=== PATIENT | male | born 1985 | race Caucasian/White ===

== ENCOUNTER 2018-11-11 11:08 | Emergency (ER) | payer OTHER ==
[~2018-11-11] VITALS: Ht 175.3 cm; Wt 81.2 kg
[~2018-11-11 11:08] MED LIST: CYCL-1 PO
[2018-11-11] MEDS ORDERED: diltiazem 5mg/ml 5ml inj. IV ONE ×2 (12:20)
[2018-11-11] MEDS ORDERED: normal saline 1000ml 1,000 ML IV ONE (12:26)
[2018-11-11] MEDS ORDERED: morphine 4 MG/ML inj SYRINge IV ONE (12:30)
[2018-11-11] MEDS ORDERED: iohexol 350MG/ML 100ml bottle IV ONE (12:32)
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
[2018-11-11 13:48] LABS: BASOPHILS % (AUTO) 0.3 % (0-1); EOSINOPHILS % (AUTO) 0.2 % (0-6); HEMATOCRIT 46.5 % (42.0-52.0); HEMOGLOBIN 15.8 g/dl (14.0-17.9); LYMPHOCYTES % (AUTO) 14.8 % (21-51); MEAN CORPUSCULAR HEMOGLOBIN 30.7 PG (27.0-31.0); MEAN CORPUSCULAR HGB CONC 33.9 g/dL (33.0-36.5); MEAN CORPUSCULAR VOLUME 90.6 FL (78-98); MEAN PLATELET VOLUME 7.6 FL (7.4-10.4); MONOCYTES # (AUTO) 0.6 X10'3 (0-0.9); MONOCYTES % (AUTO) 8.8 % (2-12); NEUTROPHILS # (AUTO) 5.1 X10'3 (1.8-7.7); NEUTROPHILS % (AUTO) 75.9 % (42-75); PLATELET COUNT 197 X10'3 (140-440); RED BLOOD COUNT 5.14 X10'6 (4.70-6.10); RED CELL DISTRIBUTION WIDTH 13.4 % (11.5-14.5); WHITE BLOOD COUNT 6.8 X10'3 (4.5-11.0)
[2018-11-11 13:53] LABS: PARTIAL THROMBOPLASTIN TIME 29 SECONDS (22-32)
[2018-11-11 13:54] LABS: ALANINE AMINOTRANSFERASE 35 U/L (12-78); ALBUMIN 4.1 G/DL (3.4-5.0); ALBUMIN/GLOBULIN RATIO 0.9 (1.1-1.5); ALKALINE PHOSPHATASE 69 IU/L (46-116); AMYLASE 63 U/L (25-115); ANION GAP 7 (8-16); ASPARTATE AMINO TRANSFERASE 24 U/L (10-37); BILIRUBIN,TOTAL 0.8 MG/DL (0.1-1.0); BLOOD UREA NITROGEN 12 MG/DL (7-18); BUN/CREATININE RATIO 11.7 (5.4-32.0); CALCIUM 9.1 MG/DL (8.5-10.1); CHLORIDE 99 MMOL/L (99-107); CREATININE 1.03 MG/DL (0.60-1.10); GLUCOSE 94 MG/DL (70-104); LIPASE 145 U/L (73-393); MAGNESIUM 1.9 MG/DL (1.5-2.4); POTASSIUM 4.8 MMOL/L (3.5-5.1); SODIUM 137 MMOL/L (135-145); TOTAL CARBON DIOXIDE 30.9 MMOL/L (24-32); TOTAL PROTEIN 8.6 G/DL (6.4-8.2); eGFR 84 ML/MIN
[2018-11-11] MEDS ORDERED: NAPR-56 PO (14:53)
[2018-11-11] MEDS ORDERED: ketorolac tromethamine 15mg/ml inj. IV ONE (14:55)
[2018-11-11 15:04] VITALS: BP 159/95
== END 2018-11-11 15:45 | disposition home or self-care (01) ==
LOC: ER 11:08
DX: S22.20XD Unspecified fracture of sternum, subsequent encounter for fracture with routine healing (principal); R07.89 Other chest pain; V49.88XD Car occupant (driver) (passenger) injured in other specified transport accidents, subsequent encounter
CPT/HCPCS: 36415; 71046; 71275; 74160; 80053; 82150; 83690; 83735; 84484; 85025; 85610; 85730; 86885; 86900; 86901; 93005; 96374; 99284; J1885; J2270; Q9967